=== PATIENT | female | born 1995 ===

== ENCOUNTER 2019-09-17 23:00 | Emergency (ER) | payer OTHER ==
[2019-09-17] MEDS ORDERED: Ibuprofen TAB* 600 MG PO ONE (23:23)
--- NOTE | 2019-09-17 23:40 | ED ---
Lower Extremity - HPI Summary HPI Summary: Patient is a 23 y/o F presenting to [facility] with complaints of right ankle pain. She states that she had been sitting down writing an essay all day today. When she stood up, she rolled her ankle and fell. Patient reports that she is capable of ambulating but notes that weight-bearing is painful. She denies knee pain. Patient states that she had elevated and iced her ankle but has not taken any medication for her pain. PMHx is denied, PSHx of wisdom teeth removal is noted. On shake feeder, it is noted that movement and weight bearing is noted to aggravate Sx. Home medications and allergies are reviewed. - History of Current Complaint Chief Complaint: EDExtremityLower Stated Complaint: RT ANKLE INJ PER PT Time Seen by Provider: 09/17/19 23:19 Hx Obtained From: Patient Mechanism Of Injury: Twisted - rolled Onset of Pain: Prior to Arrival Onset/Duration: Still Present Pain Intensity: 0 Pain Scale Used: 0-10 Numeric Timing: Constant Location: Is Discrete @ - right ankle Associated Signs And Symptoms: Negative: Fever - on vitals, temp is 98 F, Knee Pain Aggravating Factor(s): Weight Bearing - Allergies/Home Medications Allergies/Adverse Reactions: Allergies Allergy/AdvReac Type Severity Reaction Status Date / Time No Known Allergies Allergy Verified 09/17/19 23:09 PMH/Surg Hx/FS Hx/Imm Hx Endocrine/Hematology History: Denies: Hx Diabetes Cardiovascular History: Denies: Hx Hypertension - Surgical History Surgery Procedure, Year, and Place: wisdom teeth removal Infectious Disease History: No Infectious Disease History: Denies: Traveled Outside the [place] in Last 30 Days - Family History Known Family History: Negative: Diabetes - Social History Alcohol Use: None Substance Use Type: Reports: None Smoking Status (MU): Never Smoked Tobacco Review of Systems Negative: Fever - on vitals, temp is 98 F Musculoskeletal: Other - positive - right ankle pain; negative - right knee pain All Other Systems Reviewed And Are Negative: Yes Physical Exam - Summary Physical Exam Summary: Constitutional: Well-developed, Well-nourished, Alert. (-) Distressed Skin: Warm, Dry HENT: Normocephalic; Atraumatic Eyes: Conjunctiva normal Neck: Musculoskeletal ROM normal neck. (-) JVD, (-) Stridor, (-) Tracheal deviation Cardio: Rhythm regular, rate normal, Heart sounds normal; Intact distal pulses; Radial pulses are 2+ and symmetric. (-) Murmur Pulmonary/Chest wall: Effort normal. (-) Respiratory distress, (-) Wheezes, (-) Rales Abd: Soft, (-) tenderness, (-) Distension, (-) Guarding, (-) Rebound Musculoskeletal: Tenderness over the lateral foot distal to the lateral malleolus, no proximal tenderness, FROM. (-) Edema Lymph: (-) Cervical adenopathy Neuro: Alert, Oriented x3 Psych: Mood and affect Normal Triage Information Reviewed: Yes Vital Signs On Initial Exam: Initial Vitals Temp Pulse Resp BP Pulse Ox 98.0 F 74 18 119/62 98 09/17/19 23:09 09/17/19 23:09 09/17/19 23:09 09/17/19 23:09 09/17/19 23:09 Vital Signs Reviewed: Yes Procedures - Sedation Patient Received Moderate/Deep Sedation with Procedure: No Diagnostics - Vital Signs Vital Signs Temp Pulse Resp BP Pulse Ox 09/17/19 23:09 98.0 F 74 18 119/62 98 - Laboratory Lab Statement: Any lab studies that have been ordered have been reviewed, and results considered in the medical decision making process. - Radiology RIGHT ANKLE X-RAY Radiology Interpretation Completed By: ED Physician Summary of Radiographic Findings: Negative for fracture, pending official report. Lower Extremity Course/Dx - Course Course Of Treatment: Patient is here with a ankle injury. Patient had point tenderness just distal to her lateral malleolus. Patient had neck sure which showed no fracture. Patient had an Steve wrap applied and had immediate relief of her pain. - Diagnoses Provider Diagnoses: Right ankle strain Discharge ED - Sign-Out/Discharge Documenting (check all that apply): Patient Departure - discharge - Discharge Plan Condition: Stable Disposition: HOME Patient Education Materials: Ankle Sprain (ED) Referrals: CURTIS Saha [, APPLICATION, OTHER] - 1 Week Additional Instructions: Take ibuprofen 600 mg as needed for pain every six hours. Elevate your leg while at home and ice your ankle. Use your air-cast for comfort. Follow up with [place] [facility] in one week if you continue to have pain. - Billing Disposition and Condition Condition: STABLE Disposition: Home - Attestation Statements Document Initiated by Scribe: Yes Documenting Scribe: MARIA GUADALUPE ZARCO Provider For Whom Scribe is Documenting (Include Credential): ISAÍAS LIRIANO MD Scribe Attestation: I, MARIA GUADALUPE ZARCO, scribed for ISAÍAS LIRIANO MD on 09/18/19 at 0218. Scribe Documentation Reviewed: Yes Provider Attestation: The documentation as recorded by the MARIA GUADALUPE amador accurately reflects the service I personally performed and the decisions made by me, ISAÍAS LIRIANO MD Status of Scribe Document: Viewed
[2019-09-17 23:54] VITALS: BP 113/66
--- OUTSIDE RECORDS SUMMARY | 2019-09-17 23:56 | XMS REPORT | Continuity of Care Document ---
:1995 Author Organization [facility] Address [address] [place] [address] Phone Care Team Providers Name Role Phone Patricia Foote Unavailable Unavailable Allergies, Adverse Reactions, Alerts Substance Reaction Status No Known Allergies Active Medications Medication Instructions Dosage Effective Dates Status Comments (start - stop) Liletta 19.5 mcg/24 Insert IU - Active hour (4 years) intrauterine device EContra EZ 1.5 mg 1 tab po within 72 - No Longer tablet hours unprotected IC Active Problems Condition Effective Dates (start - Clinical Status Comments stop) Encntr screen for infections w sexl mode of transmiss Person w feared hlth complaint in whom no diagnosis is made Encounter for oth general cnsl and advice on contraception Encounter for screening for human - immunodeficiency virus Human immunodeficiency virus [HIV] - counseling Encounter for test, result negative Encounter for insertion of intrauterine contraceptive device Encounter for oth general cnsl and - advice on contraception Human immunodeficiency virus [HIV] - counseling Encounter for screening for human - immunodeficiency virus Encntr screen for infections w sexl mode of transmiss Encounter for initial prescription of uterin contracep dev Encounter for prescription of emergency contraception Procedures Procedure Date WET SMEAR ASSAY OF BODY FLUID-PH N.GONORRHOEAE, DNA, AMP PROB CHYLMD DNA, AMP PROBE TRICHOMONAS VAGIN, DIR PROBE OFFICE/OUTPATIENT VISIT, EST HIV-1/HIV-2, SINGLE ASSAY PREVENTIVE COUNSELING, 8-14 Minutes OTHER Medical Services 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 STI PREVENTIVE COUNSELING, 8-14 Minutes Results Test Name Date and Time Measure Units Reference Range Abnormal Flag Status Comments Panel Description: Wet Mount Final Wet Mount 14:31:25 NegativeHyphae/Deborah: noBudding Final yeast: noTrich: noClue cells: noWBCs: noAmine/Whiff test: negativepH: 4.5 Advance Directives Directive Yes / No Effective Date File Name No information Encounters Encounter Practice Location Reason(s) Diagnoses Date Provider Providers Description For Visit Copied on Encounter OFFICE/OUTPA [facility] Vaginal Encntr screen for [place] Referring TIENT VISIT, [facility] [place] a/o Vulvar infections w sexl Patricia. Provider: EST [facility] [place] mode of [address] (chief transmissPerson w [address] [place], [facility], [address] complaint) [address], [address] STI complaint in whom [place], [address], [address], [place], Testing [place] diagnosis [place] [address], [place], [address]. [id number], Symptoms oth general cnsl [place]. tel:[phone] [place] (F) (chief and advice on tel:[phone] tel:[phone] complaint) contraceptionEncoun [phone] [id number] ter for screening for human immunodeficiency virusHuman immunodeficiency virus [HIV] counseling [facility] Encounter for Mar-0 White Referring [facility] [place] test, [place]. Provider: [place] result [address] negativeEncounter [place], [address] [place], [address] intrauterine [place], St, St, [place], contraceptive [place], [place], device [address], [place], [address]. [id number], [place]. [place] tel:[phone] [facility] Encounter for oth [place] Referring [facility] [place] general cnsl and 6 Patricia. Provider: Humphrey advice on [address] contraceptionHuman [place], [place], [address], [address] virus [HIV] [place], [address], [address], [place], counselingEncounter [place], [place], [place], [place] [address], [place], [address]. [id number], human [place]. tel:+[phone] [place] immunodeficiency tel:[phone] tel:[phone] virusEncntr screen [id number] for infections w sexl mode of transmissEncounter for initial prescription of uterin contracep devEncounter for prescription of emergency contraception Family History Family Member Diagnosis Age At Onset No information Immunizations Vaccine Date Status Comments No Known Immunization history Payers Payer name Insurance type Covered alliance party ID Authorization(s) Loretta Coe [id number] Social History Type Description Quantity Date Captured Comments Alcohol Use Details Unknown Caffeine Use Details Unknown Tobacco Use Status Current non-smoker Smoking Status Never smoker Non-Smoking Tobacco : No Details Available : No Details Available 2018 Use Details Sex Female Vital Signs Date / Height Weight BMI Pulse Blood Temperature Respiratory Body Head BMI Pulse Inhaled Time: Rate Pressure Rate Surface Circumference percentile Ox Ox Area No information Chief Complaint And Reason For Visit Most recent encounter only, dated '09/09/2019 14:00'. Vaginal a/o Vulvar Burning (chief complaint)STI Testing with Symptoms (F) (chief complaint) Reason For Referral Reason For Referral No information Plan Of Treatment Date Type Action Status No information History Of Present Illness Encounter Date Complaint History Of Present Illness No information Functional Status Date Functional Assessment No information Medications Administered Medication Instructions Dosage Effective Dates (start - stop) Status Comments No information Instructions Date Instruction Additional Information No information Assessments Type Assessment Date assessment Encntr screen for infections w sexl mode of transmiss assessment Person w feared hlth complaint in whom no diagnosis is made assessment Encounter for oth general cnsl and advice on contraception 2018 assessment Encounter for screening for human immunodeficiency virus 2018 assessment Human immunodeficiency virus [HIV] counseling Goals Health Concern Goal Type Priority Status Date No information Medical Equipment Description Device [place] Device Identifier Effective Dates (start - stop ) Status No information Mental Status Date Cognitive Assessment Normal Orientation Health Concerns Observation Date No information Concern Status Date No information
== END 2019-09-17 23:51 | disposition home or self-care (01) ==
LOC: ED 23:00
DX: S96.911A Strain of unspecified muscle and tendon at ankle and foot level, right foot, initial encounter (principal); X50.1XXA Overexertion from prolonged static or awkward postures, initial encounter; Y92.9 Unspecified place or not applicable
CPT/HCPCS: 99282; A9270-GY